=== PATIENT | female | born 1990 | race Two or more races ===

== ENCOUNTER 2025-05-21 13:33 | Outpatient (OUT) | payer OTHER, SELFPAY ==
--- NOTE | 2025-05-21 13:44 | US_ITS ---
The [address] [address] Patient Name: SUYAPA PIERSON MRN: [id number] date: 1990 Sex: F Assigned Patient Location: [place] Current Patient Location: [place] Accession/Order Number: [id number] Exam Date: 05/21/2025 13:45 Report Date: 05/21/2025 14:07 At the request of: BRIDGETTE LAL NP Procedure: US thyroid US thyroid 05/21/2025 1:57 PM SIGNS AND SYMPTOMS: ^Opioid Dependence COMPARISON: None. FINDINGS: Right and left thyroid lobes are normal in size and echotexture. The right thyroid lobe measures 4.9 x 1.7 x 1.1 cm and the left thyroid lobe measures 4.8 x 1.5 x 1.4 cm cm. The isthmus measures 5 mm in thickness. There is a mixed cystic and solid, wider than tall 1.3 x 1.4 x 2.1 cm nodule at the inferior pole on the left. This has smooth margins. Solid components are isoechoic. No cervical lymphadenopathy is noted. US/US thyroid IMPRESSION: TIRADS: 2 (Not suspicious) There is a dominant nodule at the inferior margin without suspicious features measuring up to 2.1 cm in greatest dimension. No accompanying calcifications. Recommendation: No further ultrasound follow-up is recommended. Impression dictated by: Eddy Reese M.D. 05/21/2025 2:07 PM Dictation Location: [place] [address] Electronically authenticated by: [id number] Y Date: 05/21/2025 14:07
== END 2025-05-21 13:34 | disposition home or self-care (01) ==
PROVIDERS: PCP Nurse Practitioner Primary Care; Visit Provider Nurse Practitioner Primary Care
DX: F11.20 Opioid dependence, uncomplicated (principal); E04.1 Nontoxic single thyroid nodule
CPT/HCPCS: 76536